=== PATIENT | female | born 1995 | race Caucasian/White ===

== ENCOUNTER 2023-08-30 12:21 | Emergency (ER) | payer OTHER ==
[2023-08-30 12:54] LABS: APPEARANCE,URINE CLOUDY (CLEAR); BILIRUBIN,URINE NEGATIVE (NEGATIVE); COLOR,URINE YELLOW; GLUCOSE,URINE NEGATIVE (NEGATIVE); KETONES,URINE NEGATIVE (NEGATIVE); LEUKOCYTE ESTERASE,URINE SMALL (NEGATIVE); NITRITE,URINE NEGATIVE (NEGATIVE); OCCULT BLOOD,URINE NEGATIVE (NEGATIVE); PH,URINE 6.5 (5.0-8.0); PROTEIN,URINE NEGATIVE (NEGATIVE); UROBILINOGEN,URINE 0.2 E.U./dL (0.2-1.0)
[2023-08-30 13:00] LABS: BACTERIA,URINE FEW /HPF; SQUAMOUS EPITHELIAL CELLS,UR FEW /HPF
[2023-08-30] MEDS ORDERED: Cephalexin 500 MG Cap ONE (13:20)
== END 2023-08-30 13:30 | disposition home or self-care (01) ==
LOC: LB.ED 12:21
DX: O23.41 Unspecified infection of urinary tract in pregnancy, first trimester (principal); Z86.16 Personal history of COVID-19; Z79.899 Other long term (current) drug therapy; Z3A.08 8 weeks gestation of pregnancy
CPT/HCPCS: 81001; 87086; 99283; A9270-GY